=== PATIENT | male | born 1960 | race African-American/Black ===

== ENCOUNTER 2022-04-01 09:23 | Emergency (ER) | payer SELFPAY ==
[2022-04-01 09:38] VITALS: TEMP 98; BMI 23.7
[2022-04-01] MEDS ORDERED: SODIUM CHLORIDE 0.9% 500 ML INFUS.BAG IV ONE (10:40)
[2022-04-01 12:34] VITALS: PULSE 79
[2022-04-01 12:41] LABS: BASO % 0.6 % (0-2.0); HEMATOCRIT 38.1 % (35.4-49); HEMOGLOBIN 12.1 GM/dL (11.7-16.9); LYMPH % 39.7 % (8-40); MCH 26.2 pg (25.7-33.7); MCHC 31.7 g/dl (32.0-35.9); MEAN CELL VOLUME 82.7 fl (80-96); MEAN PLT VOLUME 7.3 fl (7.5-11.1); MONO % 15.5 % (3.8-10.2); NEUT % 43.2 % (42.8-82.8); PLATELET COUNT 146 10^3/uL (134-434); RBC 4.61 M/mm3 (4.00-5.60); RDW 16.3 % (11.9-15.9); WHITE BLOOD COUNT 3.1 K/mm3 (4.0-10.0)
[2022-04-01 13:07] LABS: ALBUMIN 2.8 g/dl (3.4-5.0); BLOOD UREA NITROGEN 15.2 mg/dL (7-18)
[2022-04-01 13:10] LABS: CREATININE 0.7 mg/dL (0.55-1.3)
[2022-04-01 13:11] LABS: TOT PROT 7.4 g/dl (6.4-8.2)
[2022-04-01 13:12] LABS: BILIRUBIN,TOTAL 0.2 mg/dL (0.2-1)
[2022-04-01 13:30] VITALS: BP 148/83; RESP 20
== END 2022-04-01 14:30 | disposition home or self-care (01) ==
LOC: JER 09:23
DX: R00.0 Tachycardia, unspecified (principal); Z59.00 Homelessness unspecified
CPT/HCPCS: 36415; 71045-TC-FY; 80053; 83735; 84484; 85025; 93005; 93010; 99285-25